=== PATIENT | female | born 1995 | race American Indian/Alaskan Native ===

== ENCOUNTER 2018-01-24 11:37 | Emergency (ER) | payer MEDICAID ==
[2018-01-24 11:51] VITALS: BP 103/68
[2018-01-24] MEDS ORDERED: Codeine/guaiFENesin 100mg-10 MG/5 ML Syrup 10 ML Cup PO ONE (12:48)
--- NOTE | 2018-01-24 12:50 | EDM.PDOC ---
ED HPI GENERAL MEDICAL PROBLEM - General Chief Complaint: General Stated Complaint: HEADACHE/SENSITIVE TO LIGHT/CONGESTED Time Seen by Provider: 01/24/18 12:41 Source of Information: Reports: Family, RN Notes Reviewed History Limitations: Reports: No Limitations - History of Present Illness INITIAL COMMENTS - FREE TEXT/NARRATIVE: 22-year-old female presents to the emergency department today complaint of cough congestion sinus pressure feverish at home, she's been ill for less than 24 hours Headache Pain Score (Numeric/FACES): 7 - Related Data Allergies Allergy/AdvReac Type Severity Reaction Status Date / Time No Known Allergies Allergy Verified 01/24/18 12:02 Home Meds: Home Meds Pnv with Ca,No.72/Iron/Fa [Pnv Plus Multivit Tab] 1 tab PO DAILY [History] Past Medical History Genitourinary History: Reports: Other (See Below) Other Genitourinary History: Known cyst on r ovary. 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 Endocrine/Metabolic History: Reports: Hypothyroidism - Infectious Disease History Infectious Disease History: Reports: Chicken Pox - Past Surgical History Head Surgeries/Procedures: Reports: None GI Surgical History: Reports: Cholecystectomy Female Surgical History: Reports: Section Endocrine Surgical History: Reports: None Dermatological Surgical History: Reports: None Social & Family History - Tobacco Use Smoking Status *Q: Current Every Day Smoker Years of Tobacco use: 12 Packs/Tins Daily: 0.5 Used Tobacco, but Quit: No Second Hand Smoke Exposure: Yes - Caffeine Use Caffeine Use: Reports: Soda - Recreational Drug Use Recreational Drug Use: No - Living Situation & Occupation Living situation: Reports: Single Occupation: Unemployed ED ROS GENERAL - Review of Systems Review Of Systems: See Below Constitutional: Reports: No Symptoms HEENT: Reports: Sinus Problem Respiratory: Reports: Shortness of Breath, Cough, Sputum. Denies: Wheezing Cardiovascular: Reports: Chest Pain GI/Abdominal: Reports: No Symptoms : Reports: No Symptoms Musculoskeletal: Reports: No Symptoms Skin: Reports: No Symptoms Neurological: Reports: No Symptoms ED EXAM, GENERAL - Physical Exam Exam: See Below Free Text/Narrative:: General: Female, not in any distress, alert and oriented x3 HEENT: head is atraumatic normocephalic, eyes pupils equal round reactive to light, sclera clear no conjunctivitis appreciated. Ears tympanic membranes clear and vivas landmarks and light reflex are present bilaterally canals are clear. Nose no septal deviation, nares are clear, no blood present. Mouth mucosa is moist and pink no erythema or exudate noted in soft palate, tongue is midline uvula is midline, dentition is intact. Neck: Supple no thyromegaly no tracheal deviation. Nodes: Cervical nodes subclavicular nodes nontender no palpable lymphadenopathy noted. Lungs: clear to auscultation bilaterally with symmetrical respirations, no adventitious noise appreciated. CV: Regular rate and rhythm S1 and S2 appreciated no murmurs rubs or gallops noted. Abdomen: Soft, nontender, no palpable masses or organomegaly appreciated, no distention no guarding bowel sounds are present, Course - Vital Signs Last Recorded V/S: Last Vital Signs Temp 96.9 F 01/24/18 12:06 Pulse 94 01/24/18 12:06 Resp 14 01/24/18 12:06 BP 103/68 01/24/18 12:06 Pulse Ox 99 01/24/18 12:06 - Orders/Labs/Meds Labs: Laboratory Tests 01/24/18 01/24/18 01/24/18 Range/Units 12:55 12:55 12:55 WBC 12.6 H (4.5-11.0) K/uL RBC 4.46 (3.30-5.50) M/uL Hgb 13.0 (12.0-15.0) g/dL Hct 38.7 (36.0-48.0) % MCV 87 (80-98) fL MCH 29 (27-31) pg MCHC 34 (32-36) % Plt Count 335 (150-400) K/uL Neut % (Auto) 72 H (36-66) % Lymph % (Auto) 17 L (24-44) % [place] % (Auto) 9 H (2-6) % Eos % (Auto) 3 (2-4) % Baso % (Auto) 0 (0-1) % Sodium 141 (140-148) mmol/L Potassium 3.7 (3.6-5.2) mmol/L Chloride 104 (100-108) mmol/L Carbon Dioxide 26 (21-32) mmol/L Anion Gap 10.6 (5.0-14.0) mmol/L BUN 6 L D (7-18) mg/dL Creatinine 0.7 (0.6-1.0) mg/dL Est Cr Clr Drug Dosing 89.01 mL/min Estimated GFR (MDRD) > 60 (>60) Glucose 101 (74-106) mg/dL Calcium 8.3 L (8.5-10.1) mg/dL HCG, Qual Negative Meds: Medications Discontinued Medications Generic Name Dose Route Start Last Admin Trade Name Freq PRN Reason Stop Dose Admin Guaifenesin/Codeine Phosphate 10 ml 01/24/18 12:48 01/24/18 12:53 Robitussin Ac PO 01/24/18 12:49 10 ml ONETIME ONE Administration Departure - Departure Time of Disposition: 14:25 Disposition: Home, Self-Care 01 Condition: Good Clinical Impression: Sinusitis Qualifiers: Sinusitis location: frontal Chronicity: acute Recurrence: non-recurrent Qualified Code(s): J01.10 - Acute frontal sinusitis, unspecified - Discharge Information Referrals: PCP,None [Primary Care Provider] - Forms: ED Department Discharge Additional Instructions: Take full course of antibiotics, Please followup with your primary care provider in 7-10 days if not better, please call return to the emergency department with worsening of symptoms. - Assessment/Plan Plan: Assessment Acuity = acute Site and laterality = sinusitis Etiology = probable bacterial cause Manifestations = fever, congestion Location of injury = Home Lab values = WBC elevated 12.6 consistent leukocytosis, BMP unremarkable, chest x-ray shows no acute process Plan Elected treat empirically with Augmentin 875 by mouth twice a day 10 days follow-up primary care in 7-10 days no improvement This note was dictated using [employer] voice recognition software please call with any questions on syntax or grammar.
--- NOTE | 2018-01-24 13:54 | CR ---
Chest 2V FINDINGS: The heart and vascular structures are normal in appearance. No infiltrates or effusions are demonstrated. The skeletal structures are unremarkable. IMPRESSION: Negative exam.
== END 2018-01-24 14:43 | disposition home or self-care (01) ==
LOC: JP.ED 11:37
DX: J01.10 Acute frontal sinusitis, unspecified (principal); F17.210 Nicotine dependence, cigarettes, uncomplicated
CPT/HCPCS: 36415; 71046; 80048; 84703; 85025; 99284; A9270

== ENCOUNTER 2019-04-13 13:17 | Emergency (ER) | payer MEDICAID ==
[2019-04-13 13:37] VITALS: BP 99/62; PULSE 61
--- NOTE | 2019-04-13 14:22 | EDM.PDOC ---
ED HPI GENERAL MEDICAL PROBLEM - General Chief Complaint: General Stated Complaint: BEEN NOT FEELING WELL PAST TWO DAYS 8 WEEKS PG Time Seen by Provider: 04/13/19 14:14 Source of Information: Reports: Patient, Family, Old Records, RN Notes Reviewed History Limitations: Reports: No Limitations - History of Present Illness INITIAL COMMENTS - FREE TEXT/NARRATIVE: 24-year-old female presents emergency department today complaint of shortness of breath, she is a currently 8 weeks intrauterine currently on progesterone B12 states over the last couple days she's been increasingly more short of breath, he gets extremely winded with exertion - Related Data Allergies Allergy/AdvReac Type Severity Reaction Status Date / Time No Known Allergies Allergy Verified 04/13/19 13:37 Home Meds: Home Meds Pnv with Ca,No.72/Iron/Fa [Pnv Plus Multivit Tab] 1 tab PO DAILY [History] Progesterone, Micronized [Progesterone] 100 mg PO BID 04/13/19 [History] Past Medical History Genitourinary History: Reports: Other (See Below) Other Genitourinary History: Known cyst on r ovary. 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 Endocrine/Metabolic History: Reports: Hypothyroidism - Infectious Disease History Infectious Disease History: Reports: Chicken Pox - Past Surgical History Head Surgeries/Procedures: Reports: None GI Surgical History: Reports: Cholecystectomy Female Surgical History: Reports: Section Endocrine Surgical History: Reports: None Dermatological Surgical History: Reports: None Social & Family History - Tobacco Use Smoking Status *Q: Current Some Day Smoker Years of Tobacco use: 10 Packs/Tins Daily: 1 - Caffeine Use Caffeine Use: Reports: Soda - Recreational Drug Use Recreational Drug Use: No - Living Situation & Occupation Living situation: Reports: Single, with Significant Other (lives in [place] with Boyfriend one child, divorce 3 months ago, works at [employer].) Occupation: Employed ED ROS GENERAL - Review of Systems Review Of Systems: See Below Constitutional: Reports: Fatigue. Denies: Fever, Chills HEENT: Reports: No Symptoms Respiratory: Reports: Shortness of Breath. Denies: Wheezing, Cough Cardiovascular: Reports: Dyspnea on Exertion GI/Abdominal: Reports: No Symptoms : Reports: No Symptoms ED EXAM, GENERAL - Physical Exam Exam: See Below Exam Limited By: No Limitations General Appearance: Alert, WD/WN, No Apparent Distress Neck: Normal Inspection, Supple, Non-Tender, Full Range of Motion Respiratory/Chest: No Respiratory Distress, Lungs Clear, Normal Breath Sounds, No Accessory Muscle Use, Chest Non-Tender Cardiovascular: Regular Rate, Rhythm, No Murmur GI/Abdominal: Soft, Other () Course - Vital Signs Last Recorded V/S: Last Vital Signs Temp 97.5 F 04/13/19 13:36 Pulse 61 04/13/19 13:36 Resp 13 04/13/19 13:36 BP 99/62 04/13/19 13:36 Pulse Ox 99 04/13/19 13:36 - Orders/Labs/Meds Labs: Laboratory Tests 04/13/19 04/13/19 04/13/19 Range/Units 14:28 14:28 14:28 WBC 9.8 (4.5-11.0) K/uL RBC 4.22 (3.30-5.50) M/uL Hgb 12.2 (12.0-15.0) g/dL Hct 36.8 (36.0-48.0) % MCV 87 (80-98) fL MCH 29 (27-31) pg MCHC 33 (32-36) % Plt Count 301 (150-400) K/uL Neut % (Auto) 69 H (36-66) % Lymph % (Auto) 24 (24-44) % [place] % (Auto) 7 H (2-6) % Eos % (Auto) 1 L (2-4) % Baso % (Auto) 0 (0-1) % D-Dimer, Quantitative < 100 (0.0-400.0) ng/mL Sodium 138 L (140-148) mmol/L Potassium 3.8 (3.6-5.2) mmol/L Chloride 104 (100-108) mmol/L Carbon Dioxide 24 (21-32) mmol/L Anion Gap 13.8 (5.0-14.0) mmol/L BUN 7 (7-18) mg/dL Creatinine 0.6 (0.6-1.0) mg/dL Est Cr Clr Drug Dosing 102.06 mL/min Estimated GFR (MDRD) > 60 (>60) Glucose 90 (74-106) mg/dL Calcium 8.6 (8.5-10.1) mg/dL Total Bilirubin 0.2 (0.2-1.0) mg/dL AST 13 L (15-37) U/L ALT 18 (12-78) U/L Alkaline Phosphatase 66 (46-116) U/L Total Protein 6.7 (6.4-8.2) g/dL Albumin 3.3 L (3.4-5.0) g/dL Globulin 3.4 (2.3-3.5) g/dL Albumin/Globulin Ratio 1.0 L (1.2-2.2) Urine Color (YELLOW) Urine Appearance (CLEAR) Urine pH (5.0-8.0) Ur Specific [place] (1.008-1.030) Urine Protein (NEGATIVE) mg/dL Urine Glucose (UA) (NEGATIVE) mg/dL Urine Ketones (NEGATIVE) mg/dL Urine Occult Blood (NEGATIVE) Urine Nitrite (NEGATIVE) Urine Bilirubin (NEGATIVE) Urine Urobilinogen (0.2-1.0) EU/dL Ur Leukocyte Esterase (NEGATIVE) Urine RBC (0-5) Urine WBC (0-5) Ur Epithelial Cells Amorphous Sediment Urine Bacteria Urine Mucus 04/13/19 Range/Units 14:45 WBC (4.5-11.0) K/uL RBC (3.30-5.50) M/uL Hgb (12.0-15.0) g/dL Hct (36.0-48.0) % MCV (80-98) fL MCH (27-31) pg MCHC (32-36) % Plt Count (150-400) K/uL Neut % (Auto) (36-66) % Lymph % (Auto) (24-44) % [place] % (Auto) (2-6) % Eos % (Auto) (2-4) % Baso % (Auto) (0-1) % D-Dimer, Quantitative (0.0-400.0) ng/mL Sodium (140-148) mmol/L Potassium (3.6-5.2) mmol/L Chloride (100-108) mmol/L Carbon Dioxide (21-32) mmol/L Anion Gap (5.0-14.0) mmol/L BUN (7-18) mg/dL Creatinine (0.6-1.0) mg/dL Est Cr Clr Drug Dosing mL/min Estimated GFR (MDRD) (>60) Glucose (74-106) mg/dL Calcium (8.5-10.1) mg/dL Total Bilirubin (0.2-1.0) mg/dL AST (15-37) U/L ALT (12-78) U/L Alkaline Phosphatase (46-116) U/L Total Protein (6.4-8.2) g/dL Albumin (3.4-5.0) g/dL Globulin (2.3-3.5) g/dL Albumin/Globulin Ratio (1.2-2.2) Urine Color Yellow (YELLOW) Urine Appearance Cloudy A (CLEAR) Urine pH 7.5 (5.0-8.0) Ur Specific [place] 1.020 (1.008-1.030) Urine Protein Negative (NEGATIVE) mg/dL Urine Glucose (UA) Negative (NEGATIVE) mg/dL Urine Ketones Trace H (NEGATIVE) mg/dL Urine Occult Blood Negative (NEGATIVE) Urine Nitrite Negative (NEGATIVE) Urine Bilirubin Negative (NEGATIVE) Urine Urobilinogen 2.0 H (0.2-1.0) EU/dL Ur Leukocyte Esterase Negative (NEGATIVE) Urine RBC 0-5 (0-5) Urine WBC 0-5 (0-5) Ur Epithelial Cells Many Amorphous Sediment Many Urine Bacteria Not seen Urine Mucus Rare Departure - Departure Time of Disposition: 15:40 Disposition: Home, Self-Care 01 Condition: Fair Clinical Impression: Weakness - Discharge Information Referrals: Janeth Krishnamurthy CNM [Primary Care Provider] - Forms: ED Department Discharge Additional Instructions: Follow-up with your OB on Monday call return to emergency department worsening of symptoms - Assessment/Plan Plan: Assessment Acuity = acute Site and laterality = weakness, complicated in a patient is currently 8 weeks intrauterine Etiology = unknown Manifestations = none Location of injury = Home Lab values = CBC, CMP, d-dimer, urinalysis unremarkable Plan Did review lab work with her she is going to continue to push fluids she has a follow-up with her OB on Monday This note was dictated using [employer] voice recognition software please call with any questions on syntax or grammar.
--- NOTE | 2019-04-13 15:27 | CRLCR ---
INDICATION: Shortness of breath TECHNIQUE: Chest 2 views. COMPARISON: Chest x-ray 01/24/2018 FINDINGS: The heart is normal in size. The pulmonary vasculature is within normal limits. The lungs are clear without focal consolidation, pleural effusion or pneumothorax. The visualized osseous structures are unremarkable. Surgical clips are seen within the right upper quadrant of the abdomen. IMPRESSION: No acute process. Dictated by Avril Verma MD @ 04/13/2019 3:25:09 PM Dictated by: Avril Verma MD @ 04/13/2019 15:25:20 (Electronically Signed)
== END 2019-04-13 15:59 | disposition home or self-care (01) ==
LOC: JP.ED 13:17
DX: O99.89 Other specified diseases and conditions complicating pregnancy, childbirth and the puerperium (principal); R53.1 Weakness; O99.331 Smoking (tobacco) complicating pregnancy, first trimester; F17.210 Nicotine dependence, cigarettes, uncomplicated; Z3A.08 8 weeks gestation of pregnancy
CPT/HCPCS: 36415; 71046; 80053; 81001; 85025; 85379; 99285-25

== ENCOUNTER 2019-05-19 19:37 | Emergency (ER) | payer MEDICAID ==
[2019-05-19 20:02] VITALS: BP 104/57; PULSE 73
--- NOTE | 2019-05-19 20:41 | EDM.PDOC ---
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 She has not had any recurrence. No vaginal bleeding or discharge. She currently denies any pain and feels normal. She is here as she was concerned the pain may represent contractions. She reports a normal pre- ultrasound last week in clinic. Lower Abdomen Pain Score (Numeric/FACES): 3 - Related Data Allergies Allergy/AdvReac Type Severity Reaction Status Date / Time No Known Allergies Allergy Verified 05/19/19 19:53 Home Meds: Home Meds Pnv,Calcium 72/Iron/Folic Acid [Pnv Plus Multivit Tab] 1 tab PO DAILY 01/11/18 [History] Progesterone, Micronized [Progesterone] 100 mg PO BID 04/13/19 [History] Doxylamine Succinate [Unisom] 25 mg PO BEDTIME 05/19/19 [History] Pyridoxine HCl (Vitamin B6) [Vitamin B-6] 1 tab PO DAILY 05/19/19 [History] Past Medical History Gastrointestinal History: Reports: None Genitourinary History: Reports: Other (See Below) Other Genitourinary History: Known cyst on r ovary. 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 Endocrine/Metabolic History: Reports: Hypothyroidism - Infectious Disease History Infectious Disease History: Reports: Chicken Pox - Past Surgical History Head Surgeries/Procedures: Reports: None GI Surgical History: Reports: Cholecystectomy, Hernia, Inguinal Female Surgical History: Reports: Section Endocrine Surgical History: Reports: None Dermatological Surgical History: Reports: None Social & Family History - Tobacco Use Smoking Status *Q: Current Some Day Smoker Years of Tobacco use: 10 Packs/Tins Daily: 0.2 Used Tobacco, but Quit: No Second Hand Smoke Exposure: Yes - Caffeine Use Caffeine Use: Reports: Soda - Recreational Drug Use Recreational Drug Use: No - Living Situation & Occupation Living situation: Reports: Single, with Significant Other (lives in [place] with Boyfriend one child, divorce 3 months ago, works at [employer].) Occupation: Employed ED ROS GENERAL - Review of Systems Review Of Systems: See Below Constitutional: Reports: No Symptoms HEENT: Reports: No Symptoms Respiratory: Reports: No Symptoms Cardiovascular: Reports: No Symptoms Endocrine: Reports: No Symptoms GI/Abdominal: Reports: No Symptoms : Reports: Other (cramping) Skin: Reports: No Symptoms Neurological: Reports: No Symptoms Psychiatric: Reports: No Symptoms Hematologic/Lymphatic: Reports: No Symptoms Immunologic: Reports: No Symptoms ED EXAM - Physical Exam Exam: See Below Exam Limited By: No Limitations General Appearance: Alert, No Apparent Distress Ears: Normal External Exam Nose: Normal Inspection Throat/Mouth: Normal Inspection Head: Atraumatic, Normocephalic Neck: Normal Inspection Respiratory/Chest: Lungs Clear Cardiovascular: Regular Rate, Rhythm GI/Abdominal Exam: Soft, Non-Tender, Other (gravid) Back Exam: Normal Inspection Extremities: Normal Inspection Neurological: Alert, Oriented Psychiatric: Normal Affect, Normal Mood Skin Exam: Warm, Dry Course - Vital Signs Last Recorded V/S: Last Vital Signs Temp 35.5 C 05/19/19 20:01 Pulse 73 05/19/19 20:01 Resp 16 05/19/19 20:01 BP 104/57 L 05/19/19 20:01 Pulse Ox 98 05/19/19 20:01 - Orders/Labs/Meds Orders: Active Orders 24 hr Category Date Time Status CULTURE URINE [RM] Stat Lab 05/19/19 21:02 Ordered HCG QUANTITATIVE [CHEM] Stat Lab 05/19/19 20:20 Received Labs: Laboratory Tests 05/19/19 05/19/19 Range/Units 20:20 20:26 WBC 10.5 (4.5-11.0) K/uL RBC 4.43 (3.30-5.50) M/uL Hgb 12.9 (12.0-15.0) g/dL Hct 38.8 (36.0-48.0) % MCV 88 (80-98) fL MCH 29 (27-31) pg MCHC 33 (32-36) % Plt Count 343 (150-400) K/uL Urine Color Yellow (YELLOW) Urine Appearance Cloudy A (CLEAR) Urine pH 6.0 (5.0-8.0) Ur Specific [place] 1.025 (1.008-1.030) Urine Protein Negative (NEGATIVE) mg/dL Urine Glucose (UA) Negative (NEGATIVE) mg/dL Urine Ketones Trace H (NEGATIVE) mg/dL Urine Occult Blood Negative (NEGATIVE) Urine Nitrite Negative (NEGATIVE) Urine Bilirubin Negative (NEGATIVE) Urine Urobilinogen 1.0 (0.2-1.0) EU/dL Ur Leukocyte Esterase Negative (NEGATIVE) Urine RBC Not seen (0-5) Urine WBC 0-5 (0-5) Ur Epithelial Cells Many Amorphous Sediment Not seen Urine Bacteria Many Urine Mucus Rare - Re-Assessments/Exams Free Text/Narrative Re-Assessment/Exam: 24-year-old gravid female presents with concerns of transient suprapubic cramping. Happened earlier this evening while at work, lasted a few minutes. Since this time has been completely asymptomatic. She denies any vaginal bleeding or discharge. She reports a normal ultrasound last week. given the very transient nature of her symptoms without any ongoing discomfort or vaginal discharge my concern for threatened miscarriage or other acute processes rather low. Her health literacy is quite low, I'm going to review her clinic notes and ultrasound to ensure her has been normal to date, if this is the case I do not believe we need to repeat imaging in the ED tonight. She does have a UA pending for bacteria. If work-up review of outside records unremarkable safe for discharge. We did discuss that she needs to promptly return to the ER for vaginal bleeding or persistent cramping for re-eval and imaging. 05/19/19 20:42 Free Text/Narrative Re-Assessment/Exam: clinic US reviewed, normal IUP UA with bacteruria, will treat with keflex 05/19/19 21:02 Departure - Departure Time of Disposition: 21:03 Disposition: Home, Self-Care 01 Clinical Impression: Asymptomatic bacteriuria - Discharge Information Referrals: Janeth Krishnamurthy CNM [Primary Care Provider] - Forms: ED Department Discharge Additional Instructions: We do not believe further work up of your cramping is required. Please return to the ER if your cramping returns and persists, or you develop vaginal bleeding as discussed. Take the prescribed antibiotic - My Orders Last 24 Hours: My Active Orders 05/19/19 20:20 HCG QUANTITATIVE [CHEM] Stat 05/19/19 21:02 CULTURE URINE [RM] Stat - Assessment/Plan Last 24 Hours: My Active Orders 05/19/19 20:20 HCG QUANTITATIVE [CHEM] Stat 05/19/19 21:02 CULTURE URINE [RM] Stat
== END 2019-05-19 21:13 | disposition home or self-care (01) ==
LOC: JP.ED 19:37
DX: O99.89 Other specified diseases and conditions complicating pregnancy, childbirth and the puerperium (principal); R82.71 Bacteriuria; O99.331 Smoking (tobacco) complicating pregnancy, first trimester; F17.210 Nicotine dependence, cigarettes, uncomplicated; Z3A.13 13 weeks gestation of pregnancy
CPT/HCPCS: 36415; 81001; 84702; 85027; 87086; 99284

== ENCOUNTER 2019-11-15 02:51 | Inpatient (IN) | payer MEDICAID ==
[2019-11-15] MEDS: Lactated Ringers 1,000 ML IV ONE ×2 (03:00→03:31)
[2019-11-15] MEDS ORDERED: Terbutaline 1 MG/ML SDV SUBCUT ONE (03:01)
--- NOTE | 2019-11-15 03:23 | PCM.LDHP ---
L&D History of Present Illness - General Date of Service: 11/15/19 Admit Problem/Dx: Admission Diagnosis/Problem Admission Diagnosis/Problem Source of Information: Patient History Limitations: Reports: No Limitations - History of Present Illness Introduction:: 11/15/19 24 yo with an CARLENE of 11/19/19 is here in labor. She was scheduled for a repeat section 11/15/19 at 0900. She came by ambulance and was 1-2/100/ 0. She is claribel every 3-5 min, very firm, and is having right low abdominal pain with contractions. Terbutaline given and fluid bolus started. Given her history of thin uterus in last C/S note, 2 IV's stared. Anticipate girl. Location, : Reports: Abdomen Quality: Reports: Sharp Severity: Moderate Improves with: Reports: None Worsens with: Reports: None Associated Symptoms: Denies: vaginal bleeding, vaginal fluid - Related Data Allergies/Adverse Reactions: Allergies Allergy/AdvReac Type Severity Reaction Status Date / Time No Known Allergies Allergy Verified 05/19/19 19:53 Home Medications: Home Meds Pnv,Calcium 72/Iron/Folic Acid [Pnv Plus Multivit Tab] 1 tab PO DAILY 01/11/18 [History] Pyridoxine HCl (Vitamin B6) [Vitamin B-6] 1 tab PO DAILY 09/24/19 [History] Past Medical History Gastrointestinal History: Reports: None Genitourinary History: Reports: Other (See Below) Other Genitourinary History: Known cyst on r ovary. 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): Endocrine/Metabolic History: Reports: Hypothyroidism - Infectious Disease History Infectious Disease History: Reports: Chicken Pox - Past Surgical History Head Surgeries/Procedures: Reports: None GI Surgical History: Reports: Cholecystectomy, Hernia, Inguinal Female Surgical History: Reports: Section Endocrine Surgical History: Reports: None Dermatological Surgical History: Reports: None Social & Family History - Caffeine Use Caffeine Use: Reports: Soda - Living Situation & Occupation Living situation: Reports: Single, with Significant Other (lives in [place] with Boyfriend one child, divorce 3 months ago, works at [employer].) Occupation: Employed H&P Review of Systems - Review of Systems: Review Of Systems: See Below General: Reports: No Symptoms HEENT: Reports: No Symptoms Pulmonary: Reports: No Symptoms Cardiovascular: Reports: No Symptoms Gastrointestinal: Reports: No Symptoms Genitourinary: Reports: No Symptoms Musculoskeletal: Reports: No Symptoms Skin: Reports: No Symptoms Psychiatric: Reports: No Symptoms Neurological: Reports: No Symptoms Hematologic/Lymphatic: Reports: No Symptoms Immunologic: Reports: No Symptoms L&D Exam - Exam Exam: See Below - OB Specific Contraction Intensity: Moderate to Strong Movement: Active Heart Tones: Present Heart Tones per Min: 130 Heart Rate (FHR) Variability: Minimal (0-5 bpm) (minimal to moderate with accelerations) Presentation: Vertex - Exam General: Alert, Oriented HEENT: PERRLA, Conjunctiva Clear, EOMI, Hearing Intact, Mucosa Moist & [place], Nares Patent, Normal Nasal Septum, Posterior Pharynx Clear, Pupils Equal, Pupils Reactive Neck: Supple, Trachea Midline Lungs: Clear to Auscultation, Normal Respiratory Effort Cardiovascular: Regular Rate, Regular Rhythm GI/Abdominal Exam: Normal Bowel Sounds, Soft, Non-Tender, No Organomegaly, No Distention, No Abnormal Bruit, No Mass, Pelvis Stable Rectal Exam: Normal Exam, Normal Rectal Tone Genitourinary: Normal external exam. No: Vaginal bleeding Back Exam: Normal Inspection, Full Range of Motion Extremities: Normal Inspection, Normal Range of Motion, Non-Tender, No Pedal Edema, Normal Capillary Refill Skin: Warm, Dry, Intact Neurological: Cranial Nerves Intact, Reflexes Equal Bilateral Psychiatric: Alert, Normal Affect, Normal Mood - Patient Data Lab Results Last 24 hrs: Laboratory Results - last 24 hr 11/15/19 Range/Units 03:00 WBC 11.2 H (4.5-11.0) K/uL RBC 4.73 (3.30-5.50) M/uL Hgb 12.0 (12.0-15.0) g/dL Hct 38.3 (36.0-48.0) % MCV 81 (80-98) fL MCH 25 L (27-31) pg MCHC 31 L (32-36) % Plt Count 353 (150-400) K/uL Neut % (Auto) 60 (36-66) % Lymph % (Auto) 30 (24-44) % Barnwell % (Auto) 9 H (2-6) % Eos % (Auto) 1 L (2-4) % Baso % (Auto) 0 (0-1) % Result Diagrams: 11/15/19 03:00 - Problem List (1) SNOMED Code(s): 92733531 ICD Code: Z34.90 - ENCNTR FOR SUPRVSN OF NORMAL , UNSP, UNSP TRIMESTER Status: Acute Current Visit: Yes (2) History of delivery, antepartum SNOMED Code(s): 219387005, 550142882 ICD Code: O34.219 - MATERNAL CARE FOR UNSP TYPE SCAR FROM PREVIOUS DEL Status: Acute Current Visit: Yes (3) Hepatitis C antibody positive in blood SNOMED Code(s): 854732498 ICD Code: R76.8 - OTHER SPECIFIED ABNORMAL IMMUNOLOGICAL FINDINGS IN SERUM Status: Acute Current Visit: Yes Problem List Initiated/Reviewed/Updated: Yes Orders Last 24hrs: Active Orders 24 hr Category Date Time Status DRUG SCREEN, URINE [URCHEM] Urgent Lab 11/15/19 03:03 Ordered URINALYSIS W/MICROSCOPIC [UA W/MICROSCOPIC] [URIN] Lab 11/15/19 03:03 Ordered Routine Lactated Ringers [Ringers, Lactated] 1,000 ml Med 11/15/19 03:06 Active IV BOLUS Medication Orders Lactated Ringer's (Ringers, Lactated) 1,000 mls @ 999 mls/hr IV BOLUS ONE Stop: 11/15/19 04:06 Assessment/Plan Comment:: 11/15/19 24 yo here at 39 3/7 in active labor Repeat section scheduled for 0900 today, will do now due to labor and right sided abdominal pain FHT's reassuring Membranes intact Hep C positive, RNA negative Hgb 12.0 Plan: Surgery crew called for urgent repeat section
[2019-11-15] MEDS ORDERED: Oxytocin 10 Units/1 ML SDV ONE ×2 (03:31→03:42)
[2019-11-15] MEDS ORDERED: Sodium Chloride 0.9% 10 ML Syringe FLUSH PRN (03:41)
[2019-11-15] MEDS ORDERED: cefOXitin 2 GM Vial ONE (03:42)
[2019-11-15] MEDS ORDERED: ePHEDrine 50 MG/ML SDV ONE (04:27)
[2019-11-15] MEDS ORDERED: fentaNYL 250 MCG/5 ML SDV ONE (04:55)
[2019-11-15] MEDS ORDERED: Acetaminophen/HYDROcodone 325-5 MG Tab PO PRN ×2 (05:50→09:32)
[2019-11-15] MEDS ORDERED: Sodium Chloride 0.9% 1,000 ML IV SCH (06:00)
[2019-11-15] MEDS: Morphine 2 MG/ML Syringe IVPUSH PRN ×4 (06:06→09:07)
[2019-11-15] MEDS: Ketorolac 30 MG/ML SDV IVPUSH PRN ×2 (06:33→23:53)
[2019-11-15] MEDS ORDERED: hydrOXYzine HCL 100 MG/2 ML SDV IM ONE (06:36)
[2019-11-15] MEDS ORDERED: ePHEDrine 50 MG/ML SDV IVPUSH PRN (07:43)
[2019-11-15] MEDS ORDERED: Bisacodyl 10 MG Supp RECTAL PRN (07:43)
[2019-11-15] MEDS ORDERED: Ibuprofen 800 MG Tab PO PRN ×2 (07:43→09:32)
[2019-11-15] MEDS ORDERED: diphenhydrAMINE 50 MG/ML SDV IVPUSH PRN (07:43)
[2019-11-15] MEDS ORDERED: Naloxone 0.4 MG/ML SDV IVPUSH PRN (07:44)
[2019-11-15] MEDS ORDERED: Simethicone 80 MG Tab.Chew PO PRN (07:45)
[2019-11-15] MEDS ORDERED: Ondansetron 4 MG Tab.DIS PO PRN (07:45)
[2019-11-15] MEDS ORDERED: fentaNYL 100 MCG/2 ML SDV IVPUSH PRN (07:45)
[2019-11-15] MEDS: Prenatal Multivitamin with Calcium/Folic Acid/Iron Tab PO SCH (09:10)
[2019-11-15] MEDS ORDERED: Lanolin 100% Cream 40 GM Tube TOP PRN (09:32)
[2019-11-15] MEDS ORDERED: Benzocaine 20% Top Spray 56 GM Bottle TOP PRN (09:32)
[2019-11-15] MEDS ORDERED: Witch Hazel Medicated Pads 100/Jar TOP PRN (09:32)
[2019-11-15] MEDS ORDERED: Hydrocortisone 2.5% Crm 30 GM Tube TOP PRN (09:32)
--- NOTE | 2019-11-15 09:39 | OR ---
DATE OF PROCEDURE: 11/15/2019 SURGEON: Tonny Ferrera MD PROCEDURE: section with tubal ligation. PREOPERATIVE DIAGNOSIS: Repeat . POSTOPERATIVE DIAGNOSIS: Repeat . COMPLICATION: None. INSURANCE PREMIUM AUDITOR: Ramila Mcadams CNM. ANESTHESIA: Spinal. RISKS: Risks, benefits, alternatives, and limitations including, but not limited to infection, bleeding, injury to bowel or bladder, possibility of false positives with respect to tubal, and other risks not listed here were explained to the patient, who wished to proceed. PROCEDURE IN DETAIL: The patient was placed in supine position. The previous Pfannenstiel incision was opened with a 15 blade and electrocautery was carried down through the fascia. The peritoneum was then opened sharply with Metzenbaum scissors. No abnormalities were noted. No enterotomy or injuries noted. A muscle-sparing technique was then performed. The bladder was identified and reflected inferiorly. The uterus itself was so thin you could see the fluid within it. A single rubina was created and the uterus was opened. The baby was delivered without difficulty. The cord was cut and clamped. The uterus was then delivered. The uterus was closed with 2 layers with 0 Vicryl suture in a running locked fashion. Tubal ligation was then performed next. The bilateral tubes had been identified, clamped with Lluvia, cut and suture-ligated with monofilament suture. These were then sent as specimen for left and right fallopian tube. The abdomen was inspected for clots, a small amount was noted in the posterior aspect and small in the anterior, these were removed. The abdomen was irrigated. The peritoneum and muscular layers were then reapproximated with 0 Vicryl sutures. This layer was then irrigated again. The fascia was closed with 0 Vicryl suture in a running fashion. The subcutaneous layers were irrigated, approximated, and then the skin was closed with 4-0 Vicryl. The patient tolerated the procedure well. Tonny Ferrera MD /[id number]
[2019-11-15] MEDS: Lactated Ringers 1,000 ML IV SCH ×2 (09:50→22:50)
[2019-11-15] MEDS: Acetaminophen/oxyCODONE 325-10 MG Tab PO PRN ×2 (10:36→18:19)
[2019-11-16] MEDS: Acetaminophen/oxyCODONE 325-10 MG Tab PO PRN ×3 (00:23→11:16)
[2019-11-16 07:13] VITALS: BP 102/64; PULSE 62
[2019-11-16] MEDS: Prenatal Multivitamin with Calcium/Folic Acid/Iron Tab PO SCH (08:00)
[2019-11-16] MEDS ORDERED: Prenatal Multivitamin with Calcium/Folic Acid/Iron Tab PO SCH (09:00)
--- NOTE | 2019-11-17 08:38 | PN ---
DATE OF SERVICE: 11/16/2019 SUBJECTIVE: Patient is doing well. Her pain is now well controlled with Percocet. No nausea, vomiting, shortness of breath, or chest pain. The patient is passing gas. OBJECTIVE: VITAL SIGNS: Stable, she remains afebrile. CARDIOVASCULAR: Regular rhythm and rate. RESPIRATORY: Lungs are clear to consultation bilaterally. ABDOMEN: Bowel sounds positive. Hemoglobin remained stable at 9.1. PLAN: The patient is doing well. No specific concerns today. She will be evaluated for possible discharge. Please see discharge summary for further details. Tonny Ferrera MD /[id number]
--- NOTE | 2019-11-18 09:34 | DISCH ---
DISCHARGE DIAGNOSIS: Status post section. SUMMARY OF HOSPITAL COURSE: This is a pleasant 24-year-old female, who underwent an uneventful section due to repeat requirements. On postoperative day #1, her pain was well controlled. She had no nausea, vomiting, shortness of breath, or chest pain. The patient continued to advance with respect to diet, pain, and other metrics. FOLLOWUP: With Surgery in 7 to 14 days. ACTIVITY: No lifting greater than 30 pounds x30 days. DISCHARGE MEDICATIONS: Please see MAR but include Percocet for pain.
== END 2019-11-16 11:30 | disposition home or self-care (01) | DRG 785 ==
LOC: JP.OBCHECK 02:51 → JP.OB 03:17 → OBSVTOIN 04:21 → JP.OB 04:21 → JP.MS 04:22
PROVIDERS: ADMIT Advanced Practice Midwife; ATTEND Surgery
PROC: 10D00Z1 Extraction of Products of Conception, Low, Open Approach (ICD-10-PCS; principal; 2019-11-15)
PROC: 0UB70ZZ Excision of Bilateral Fallopian Tubes, Open Approach (ICD-10-PCS; 2019-11-15)
DX: O34.211 Maternal care for low transverse scar from previous cesarean delivery (principal); Z3A.38 38 weeks gestation of pregnancy; Z37.0 Single live birth; Z30.2 Encounter for sterilization
CPT/HCPCS: 36415; 59409; 80048; 80305-QW; 81001; 85025; 86850; 86900; 86901; 88302; 88307; 99211; A9270-GY; J0694; J1885; J2270; J2590; J3010; J3105; J3410; J7120

== ENCOUNTER 2020-09-18 17:53 | Emergency (ER) | payer MEDICAID ==
[2020-09-18 19:02] VITALS: BP 135/89; PULSE 73
--- NOTE | 2020-09-18 19:17 | EDM.PDOC ---
ED HPI GENERAL MEDICAL PROBLEM - General Chief Complaint: ENT Problem Stated Complaint: MOUTH PAIN Time Seen by Provider: 09/18/20 19:09 Source of Information: Reports: Patient History Limitations: Reports: No Limitations - History of Present Illness INITIAL COMMENTS - FREE TEXT/NARRATIVE: Jennifer is a 25-year-old female presenting to the ED with acute onset of jaw pain that started yesterday. She is complaining of worsening pain since the onset. She denies any known dental issues. She is not had any fever or chills. Denies any difficulty swallowing. He is having pain in the jaw around tooth #30. Right Jaw Pain Score (Numeric/FACES): 10 - Related Data Allergies Allergy/AdvReac Type Severity Reaction Status Date / Time No Known Allergies Allergy Verified 09/18/20 19:08 Home Meds: Home Meds NK [No Known Home Meds] 09/18/20 [History] Past Medical History HEENT History: Reports: Other (See Below) Other HEENT History: glasses Respiratory History: Reports: Asthma Gastrointestinal History: Reports: None Other Gastrointestinal History: cholecystectomy Genitourinary History: Reports: Other (See Below) Other Genitourinary History: Known cyst on r ovary. 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 Endocrine/Metabolic History: Reports: Hypothyroidism - Infectious Disease History Infectious Disease History: Reports: Chicken Pox - Past Surgical History Head Surgeries/Procedures: Reports: None GI Surgical History: Reports: Cholecystectomy, Hernia, Inguinal Female Surgical History: Reports: Section Endocrine Surgical History: Reports: None Dermatological Surgical History: Reports: None Social & Family History - Family History Family Medical History: No Pertinent Family History - Tobacco Use Tobacco Use Status *Q: Current Every Day Tobacco User Years of Tobacco use: 16 Packs/Tins Daily: 0.2 - Caffeine Use Caffeine Use: Reports: Soda - Recreational Drug Use Recreational Drug Use: No - Living Situation & Occupation Living situation: Reports: Single, with Significant Other (lives in [place] with Boyfriend one child, divorce 3 months ago, works at [employer].) Occupation: Employed ED ROS ENT - Review of Systems Review Of Systems: See Below Constitutional: Reports: No Symptoms HEENT: Reports: Dental Pain, Other (Swelling of the right mandible) Respiratory: Reports: No Symptoms Cardiovascular: Reports: No Symptoms Endocrine: Reports: No Symptoms GI/Abdominal: Reports: No Symptoms ED EXAM, ENT - Physical Exam Exam: See Below Exam Limited By: No Limitations General Appearance: Alert, Moderate Distress Eye Exam: Bilateral Eye: EOMI, PERRL Mouth/Throat: Dental Abcess (SPECT at around tooth #30), Dental Pain (Involving tooth #30), Dental Tenderness (Tooth #30 has deep erosions into the dentin.), Gum Swelling (Wound the base of tooth #30 without obvious apical abscess that is drainable). No: Peritonsillar Mass, Pharyngeal Erythema Head: Facial Swelling (Right mandible), Facial Tenderness (Right mandible) Neck: Normal Inspection, Supple, Lymphadenopathy (R) Respiratory/Chest: No Respiratory Distress, Lungs Clear, Normal Breath Sounds Course - Vital Signs Last Recorded V/S: Last Vital Signs Temp 36.5 C 09/18/20 19:08 Pulse 73 09/18/20 19:08 Resp 16 09/18/20 19:08 BP 135/89 09/18/20 19:08 Pulse Ox 98 09/18/20 19:08 - Orders/Labs/Meds Meds: Medications Discontinued Medications Generic Name Dose Route Start Last Admin Trade Name Jhonatanq PRN Reason Stop Dose Admin Bupivacaine HCl/Epinephrine Bitart 1.8 ml 09/18/20 19:19 09/18/20 19:26 Bupivacaine 0.5%/Epinephrine 1:200,000 1.8 Ml Cartridge INJECT 09/18/20 19:20 1.8 ml ONETIME ONE Administration - Re-Assessments/Exams Free Text/Narrative Re-Assessment/Exam: 09/18/20 19:29 to give symptomatic relief, I performed a right inferior alveolar dental block with bupivacaine 0.5% and epinephrine. A total of 1.8 mL was instilled into the area around this nerve bundle. This did provide some symptomatic relief. The patient should continue to take ibuprofen as the mainstay of pain but I am sending her home with a small amount of hydrocodone for pain relief as well. I am also putting patient on clindamycin 300 mg 4 times a day for the next 10 days to treat the infection. Patient will need to follow-up with a dentist soon as possible to get this tooth extracted as it it will be a nidus for repeated infections. Departure - Departure Time of Disposition: 19:50 Disposition: Home, Self-Care 01 Clinical Impression: Dental abscess, Dental caries extending into dentin - Discharge Information Instructions: Dental Abscess, [id number] Referrals: PCP,None [Primary Care Provider] - Forms: ED Department Discharge Care Plan Goals: Today we performed a dental block to provide pain relief. I am starting her on clindamycin 300 mg 4 times a day for the next 10 days to treat this dental infection. We will send you home with a small amount of hydrocodone for breakthrough pain. Sepsis Event Note (ED) - Evaluation Sepsis Screening Result: No Definite Risk - Focused Exam Vital Signs: Vital Signs Temp Pulse Resp BP Pulse Ox 09/18/20 19:08 36.5 C 73 16 135/89 98 09/18/20 19:00 36.5 C 73 16 135/89 98 - Problem List & Annotations (1) Dental abscess SNOMED Code(s): 843564519 Code(s): K04.7 - PERIAPICAL ABSCESS WITHOUT SINUS Status: Acute Priority: Low Current Visit: Yes (2) Dental caries extending into dentin SNOMED Code(s): 994097394 Code(s): K02.62 - DENTAL CARIES ON SMOOTH SURFACE PENETRATING INTO DENTIN Status: Acute Priority: Low Current Visit: Yes - Problem List Review Problem List Initiated/Reviewed/Updated: Yes
[2020-09-18] MEDS ORDERED: Bupivacaine 0.5%/EPINEPHrine 1:200,000 1.8 ML Cartridge INJECT ONE (19:19)
== END 2020-09-18 20:01 | disposition home or self-care (01) ==
LOC: JP.ED 17:53
DX: K04.7 Periapical abscess without sinus (principal); K02.9 Dental caries, unspecified; J45.909 Unspecified asthma, uncomplicated; Z72.0 Tobacco use
CPT/HCPCS: 64400; 64450; 99282; J3490

== ENCOUNTER 2020-09-20 20:55 | Emergency (ER) | payer MEDICAID ==
[2020-09-20 21:24] VITALS: BP 120/73; PULSE 75
[2020-09-20] MEDS ORDERED: Ondansetron 4 MG Tab.DIS PO ONE (21:40)
[2020-09-20] MEDS ORDERED: Sodium Chloride 0.9% 1,000 ML IV ONE (21:48)
[2020-09-20] MEDS ORDERED: Sodium Chloride 0.9% 10 ML Syringe FLUSH PRN (21:48)
--- NOTE | 2020-09-20 22:11 | EDM.PDOC ---
ED HPI GENERAL MEDICAL PROBLEM - General Chief Complaint: ENT Problem Stated Complaint: MOUTH PAIN,NAUSEOUS Time Seen by Provider: 09/20/20 21:37 Source of Information: Reports: Patient, Old Records History Limitations: Reports: No Limitations - History of Present Illness INITIAL COMMENTS - FREE TEXT/NARRATIVE: Jennifer is a 25-year-old female presenting to the ED for reevaluation of her dental pain now accompanied by nausea and vomiting, inability to eat or drink anything, and dehydration. Patient was seen by me in the ED yesterday and diagnosed with a dental abscess involving tooth #32. She was started on clindamycin and hydrocodone. She did have a dental block yesterday. Today she has been having increasing nausea and vomiting likely due to the clindamycin. She has not been able to take her medicine this afternoon. Right Jaw Pain Score (Numeric/FACES): 9 - Related Data Allergies Allergy/AdvReac Type Severity Reaction Status Date / Time No Known Allergies Allergy Verified 09/20/20 21:21 Home Meds: Home Meds Clindamycin HCl 2 tab PO QID 09/20/20 [History] Past Medical History HEENT History: Reports: Other (See Below) Other HEENT History: glasses Respiratory History: Reports: Asthma Gastrointestinal History: Reports: None Other Gastrointestinal History: cholecystectomy Genitourinary History: Reports: Other (See Below) Other Genitourinary History: Known cyst on r ovary. 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 Endocrine/Metabolic History: Reports: Hypothyroidism - Infectious Disease History Infectious Disease History: Reports: Chicken Pox - Past Surgical History Head Surgeries/Procedures: Reports: None HEENT Surgical History: Reports: Other (See Below) Other HEENT Surgeries/Procedures: recent tooth abcess Respiratory Surgical History: Reports: None GI Surgical History: Reports: Cholecystectomy, Hernia, Inguinal Female Surgical History: Reports: Section Other Female Surgeries/Procedures: Endocrine Surgical History: Reports: None Dermatological Surgical History: Reports: None Social & Family History - Family History Family Medical History: No Pertinent Family History - Tobacco Use Tobacco Use Status *Q: Current Every Day Tobacco User Years of Tobacco use: 20 Packs/Tins Daily: 0.5 - Caffeine Use Caffeine Use: Reports: Coffee, Energy Drinks, Soda - Recreational Drug Use Recreational Drug Use: No - Living Situation & Occupation Living situation: Reports: Single, with Significant Other (lives in [place] with Boyfriend one child, divorce 3 months ago, works at [employer].) Occupation: Employed ED ROS ENT - Review of Systems Review Of Systems: See Below Constitutional: Reports: No Symptoms, Malaise HEENT: Reports: Dental Pain Respiratory: Reports: No Symptoms Cardiovascular: Reports: No Symptoms Endocrine: Reports: No Symptoms GI/Abdominal: Reports: Nausea, Vomiting : Reports: No Symptoms Musculoskeletal: Reports: No Symptoms Skin: Reports: No Symptoms Neurological: Reports: No Symptoms Psychiatric: Reports: No Symptoms Hematologic/Lymphatic: Reports: No Symptoms Immunologic: Reports: No Symptoms ED EXAM, ENT - Physical Exam Exam: See Below Exam Limited By: No Limitations General Appearance: Alert, Anxious, Moderate Distress Eye Exam: Bilateral Eye: EOMI, PERRL Mouth/Throat: Dental Abcess (Tooth #32), Dental Pain (#32), Dental Tenderness (With #32) Head: Facial Swelling (Right mandible at the angle of the jaw), Facial Tenderness (Right mandible at the angle of the jaw) Neck: Normal Inspection, Supple, Non-Tender, Full Range of Motion, Lymphadenopathy (R) Respiratory/Chest: No Respiratory Distress, Lungs Clear, Normal Breath Sounds Cardiovascular: Normal Peripheral Pulses, Regular Rate, Rhythm GI/Abdominal: Normal Bowel Sounds, Soft, Non-Tender Back: Normal Inspection Extremities: Normal Inspection Neurological: Alert, Oriented, Normal Cognition, No Motor/Sensory Deficits Psychiatric: Normal Affect, Anxious Skin: Warm, Dry. No: Erythema Course - Vital Signs Last Recorded V/S: Last Vital Signs Temp 36.7 C 09/20/20 21:23 Pulse 75 09/20/20 21:23 Resp 16 09/20/20 21:23 BP 120/73 09/20/20 21:23 Pulse Ox 97 09/20/20 21:23 - Orders/Labs/Meds Orders: Active Orders 24 hr Category Date Time Status Sodium Chloride 0.9% [Normal Saline] 1,000 ml Med 09/20/20 21:48 Active IV .BOLUS Sodium Chloride 0.9% [Saline Flush] Med 09/20/20 21:48 Active 10 ml FLUSH ASDIRECTED PRN Saline Lock Insert [OM.PC] Routine Oth 09/20/20 21:48 Ordered Medication Orders Sodium Chloride (Normal Saline) 1,000 mls @ 999 mls/hr IV .BOLUS ONE Stop: 09/20/20 22:48 Last Admin: 09/20/20 22:05 Dose: 999 mls/hr Documented by: ALIE Sodium Chloride (Sodium Chloride 0.9% 10 Ml Syringe) 10 ml FLUSH ASDIRECTED PRN PRN Reason: Keep Vein Open Last Admin: 09/20/20 22:04 Dose: 10 ml Documented by: ALIE Meds: Medications Generic Name Dose Route Start Last Admin Trade Name Freq PRN Reason Stop Dose Admin Sodium Chloride 1,000 mls @ 999 mls/hr 09/20/20 21:48 09/20/20 22:05 Normal Saline IV 09/20/20 22:48 999 mls/hr .BOLUS ONE Administration Sodium Chloride 10 ml 09/20/20 21:48 09/20/20 22:04 Sodium Chloride 0.9% 10 Ml Syringe FLUSH 10 ml ASDIRECTED PRN Administration Keep Vein Open Discontinued Medications Generic Name Dose Route Start Last Admin Trade Name Freq PRN Reason Stop Dose Admin Ondansetron HCl 4 mg 09/20/20 21:40 09/20/20 21:47 Ondansetron 4 Mg Tab.Dis PO 09/20/20 21:41 4 mg ONETIME ONE Administration - Re-Assessments/Exams Free Text/Narrative Re-Assessment/Exam: 09/20/20 22:10 patient is likely having GI upset secondary to the clindamycin. We will give her a liter of IV normal saline and I will send her with a prescription for a few additional hydrocodone for pain control and Zofran for nausea. I did instruct her that she should see a dentist as soon as possible to get this tooth extracted as the dental caries is into the dentin and is likely going to be a chronic infection and lost its extracted. We can get her nausea under control I would also encourage her to eat yogurt to replenish the healthy bacteria in the gut while on the clindamycin. 09/20/20 22:46 I did give her a liter of normal saline to rehydrate. She was able to eat to [employer] without difficulty. At this time she is suitable for discharge in satisfactory condition. Departure - Departure Time of Disposition: 22:47 Disposition: Home, Self-Care 01 Clinical Impression: Dental abscess, Dental caries extending into dentin, Dehydration Nausea and vomiting Qualifiers: Vomiting type: unspecified Vomiting Intractability: non-intractable Qualified Code(s): R11.2 - Nausea with vomiting, unspecified - Discharge Information Instructions: Nausea, Adult, Dental Abscess, [id number], Dehydration, Adult, [id number] Referrals: PCP,None [Primary Care Provider] - Forms: ED Department Discharge Care Plan Goals: I have sent a prescription for Zofran ODT to the [facility] machine. You may take 1 tablet up to 3 times a day as needed for nausea control. In addition, I have sent an additional 6 tablets of the hydrocodone for pain control to the [facility] machine. Please follow-up with a dentist as soon as possible to get this tooth extracted. Sepsis Event Note (ED) - Evaluation Sepsis Screening Result: No Definite Risk - Focused Exam Vital Signs: Vital Signs Temp Pulse Resp BP Pulse Ox 09/20/20 21:23 36.7 C 75 16 120/73 97 - Problem List & Annotations (1) Dental abscess SNOMED Code(s): 071653319 Code(s): K04.7 - PERIAPICAL ABSCESS WITHOUT SINUS Status: Acute Priority: Low Current Visit: Yes (2) Dental caries extending into dentin SNOMED Code(s): 616938457 Code(s): K02.62 - DENTAL CARIES ON SMOOTH SURFACE PENETRATING INTO DENTIN Status: Acute Priority: Low Current Visit: Yes (3) Dehydration SNOMED Code(s): 29552969 Code(s): E86.0 - DEHYDRATION Status: Acute Priority: Medium Current Visit: Yes - Problem List Review Problem List Initiated/Reviewed/Updated: Yes - My Orders Last 24 Hours: My Active Orders 09/20/20 21:48 Sodium Chloride 0.9% [Normal Saline] 1,000 ml IV .BOLUS Sodium Chloride 0.9% [Saline Flush] 10 ml FLUSH ASDIRECTED PRN Saline Lock Insert [OM.PC] Routine - Assessment/Plan Last 24 Hours: My Active Orders 09/20/20 21:48 Sodium Chloride 0.9% [Normal Saline] 1,000 ml IV .BOLUS Sodium Chloride 0.9% [Saline Flush] 10 ml FLUSH ASDIRECTED PRN Saline Lock Insert [OM.PC] Routine
== END 2020-09-20 23:09 | disposition home or self-care (01) ==
LOC: JP.ED 20:55
DX: K04.7 Periapical abscess without sinus (principal); K02.62 Dental caries on smooth surface penetrating into dentin; E86.0 Dehydration; R11.2 Nausea with vomiting, unspecified; Z72.0 Tobacco use
CPT/HCPCS: 96360; 99283; A9270; J7030

== ENCOUNTER 2021-07-21 17:55 | Emergency (ER) | payer OTHER, MEDICAID ==
[2021-07-21 18:52] VITALS: BP 95/69; PULSE 72
[2021-07-21] MEDS ORDERED: Ketorolac 30 MG/ML SDV IM ONE (19:19)
== END 2021-07-21 20:17 | disposition home or self-care (01) ==
LOC: JP.ED 17:55
DX: S20.211A Contusion of right front wall of thorax, initial encounter (principal); J45.909 Unspecified asthma, uncomplicated; V89.2XXA Person injured in unspecified motor-vehicle accident, traffic, initial encounter
CPT/HCPCS: 71046; 73110; 96372; 99284; J1885

== ENCOUNTER 2022-04-12 01:14 | Emergency (ER) | payer MEDICAID ==
[2022-04-12 03:36] VITALS: BP 100/73; PULSE 106
[2022-04-12 04:58] LABS: ESTIMATED GFR 125 mL/min (>60)
== END 2022-04-12 10:16 | disposition home or self-care (01) ==
LOC: JP.ED 01:14
DX: F10.929 Alcohol use, unspecified with intoxication, unspecified (principal); R45.4 Irritability and anger; J45.909 Unspecified asthma, uncomplicated; Y90.4 Blood alcohol level of 80-99 mg/100 ml
CPT/HCPCS: 36415; 80053; 80305-QW; 80307; 81001; 84443; 85025; 99284

== ENCOUNTER 2022-11-13 11:37 | Emergency (ER) | payer MEDICAID | END 2022-11-13 13:09 | disposition left against medical advice (07) | LOC: JP.ED 11:37 | DX: Z53.21 Procedure and treatment not carried out due to patient leaving prior to being seen by health care provider (principal) ==

== ENCOUNTER 2024-01-29 07:00 | Day surgery (SDC) | payer MEDICAID ==
[~2024-01-29 07:00] MED LIST: Sodium Chloride 0.9% 1,000 ML IV SCH
[2024-01-29] MEDS ORDERED: Propofol 200 MG/20 ML SDV ONE (07:44)
[2024-01-29] MEDS ORDERED: Midazolam 1 MG/ML 2 ML SDV ONE (07:47)
[2024-01-29] MEDS ORDERED: fentaNYL 50 MCG/ML SDV ONE (07:48)
[2024-01-29] MEDS: Lactated Ringers 1,000 ML IV SCH (08:00)
[2024-01-29 10:44] VITALS: BP 113/77; PULSE 64
== END 2024-01-29 10:55 | disposition home or self-care (01) ==
LOC: JP.SDS 07:00
PROVIDERS: ATTEND Family Medicine
DX: R10.9 Unspecified abdominal pain (principal); R19.7 Diarrhea, unspecified
CPT/HCPCS: 00811; 45380; 88305; J2250; J2704; J3010; J7120